=== PATIENT | male | born 1985 | race Caucasian/White ===

== ENCOUNTER 2018-03-11 21:09 | Emergency (ER) | payer OTHER, SELFPAY ==
[2018-03-11 21:12] VITALS: BP 159/83; PULSE 59; RESP 14; TEMP 36.7; O2SAT 100
--- NOTE | 2018-03-11 21:26 | DI.CT.S_ITS ---
PROCEDURE: CT KIDNEY URETER BLADDER (KUB) INDICATIONS: right flank pain TECHNIQUE: Noncontrast 5 mm thick sections acquired from the diaphragms to the symphysis. 5 mm thick coronal and sagittal reformats were then performed. For radiation dose reduction, the following was used: automated exposure control, adjustment of mA and/or kV according to patient size. COMPARISON: None. FINDINGS: Image quality: Excellent. Lung bases: Lung bases are clear. Heart size is normal. Urinary system: No kidney stones. No hydronephrosis or perinephric fat stranding. There is a small left renal cortical cysts. Both ureters appear non-dilated throughout their expected courses. Bladder wall thickness is normal; no calcified bladder stones. Other solid organs: Noncontrast evaluation of the liver demonstrates no focal hepatic lesions. Gallbladder appears within normal limits. Pancreas is normal in contours. Spleen is normal in size. No adrenal nodules. Peritoneum and bowel: Unenhanced bowel loops demonstrate normal wall thickness and caliber. The appendix appears within normal limits. No free fluid or air. Nodes and vessels: No retroperitoneal or mesenteric adenopathy by size criteria. There is mild hazy fat stranding within the small bowel mesentery with scattered subcentimeter mesenteric lymph nodes. Aorta and inferior vena cava are normal in caliber. Abdominal wall: No ventral hernias. Pelvis: No free pelvic fluid. No inguinal hernias or adenopathy. Bones: No suspicious bony lesions. No vertebral body compression fractures. IMPRESSION: 1. No evidence of nephrolithiasis or obstructive uropathy. 2. No evidence of appendicitis. 3. Mild hazy fat stranding of the mesentery with scattered subcentimeter mesenteric lymph nodes. The findings are nonspecific but suggestive of an inflammatory process such as sclerosing mesenteritis. Dictated by: Rudy Del Angel M.D. on 03/11/2018 at 21:56 Approved by: Rudy Del Angel M.D. on 03/11/2018 at 21:58
[2018-03-11] MEDS: IBUPROFEN 400 MG TABLET 800 MG PO (21:35)
[2018-03-11 22:14] LABS: Bacteria Urine None Seen
--- NOTE | 2018-03-11 22:21 | ED_ITS ---
HPI - Abdominal Pain General Chief Complaint: Abdominal Pain Stated Complaint: BACK AND ABDOMINAL PAIN Time Seen by Provider: 03/11/18 21:19 Source: patient Mode of arrival: ambulatory Limitations: no limitations History of Present Illness HPI narrative: Patient is a 32-year-old male who presents right-sided flank pain radiating down his brain. It started about an hour prior to arrival. He said he was playing basketball and when I was done the pain started it was quite intense he felt nauseated and sweaty. It radiated right down to his groin. Not down to his leg. He denies any injury. Since he is drive the pain is gone. He has not had fever hematuria or history of kidney stones. He has feeling well earlier in the day. MD complaint: abdominal pain and flank pain Onset (ago): hour(s) (1) Pain Consistency: now resolved Location: R flank Severity: severe Quality: stabbing Radiation: RLQ Migration to: no migration Relieving factors: nothing Exacerbating factors: nothing Associated symptoms: nausea Review of Systems Review of Systems GENERAL: Denies chills, fatigue, malaise, fever, sweats, travel HEENT: Denies sinus pain, ear pain, sore throat, difficulty swallowing, neck pain RESPIRATORY: Denies dyspnea, cough, wheezing, hemoptysis, sputum. CARDIOVASCULAR: Denies chest pain, palpitations, orthopnea, edema GASTROINTESTINAL: See HPI : See HPI MUSCULOSKELETAL: Denies weakness, joint pain, or bony pain SKIN: No rash, no erythema, no pruritus NEUROLOGIC: Denies weakness, dizziness, headache, numbness, change in speech, confusion PSYCHIATRIC: No concerning psychosocial issues. 12 point review of systems is negative except for those stated above and HPI [facility] Medical History Healthy adult (Acute) Social History Smoking Status: Never smoker alcohol intake: never substance use type: does not use Exam Initial Vital Signs Initial Vital Signs: Vital Signs Temperature 98.1 F 03/11/18 21:12 Pulse Rate 59 L 03/11/18 21:12 Respiratory Rate 14 03/11/18 21:12 Blood Pressure 159/83 H 03/11/18 21:12 Pulse Oximetry 100 03/11/18 21:12 GENERAL: Well-appearing young male sitting in chair no acute distress HEENT: Head atraumatic,EOMI, pupils reactive, CARDIOVASCULAR: Regular rate and rhythm without murmurs, rubs or gallops. RESPIRATORY: Breath sounds equal bilaterally, no wheezes rales or rhonchi. ABDOMEN: Soft, nontender. Normoactive bowel sounds all 4 quadrants. No guarding or rebound. : Minimal CVA tenderness EXTREMITIES: Normal range of motion, no clubbing or edema. Neurovascularly intact NEUROLOGICAL: Alert and oriented x4.Normal gait and speech. Cranial nerves II through XII grossly intact. SKIN: Warm, dry, no laceration, no petechiae, no rashes or lesions. Course Orders Ordered: ED Orders 03/11/18 21:26 CT kidney ureter bladder (KUB) Stat 03/11/18 22:13 Urine Microscopic Stat Discontinued Medications Ibuprofen (Advil) 800 mg PO NOW ONE Stop: 03/11/18 21:27 Last Admin: 03/11/18 21:35 Dose: 800 mg Vital Signs - 8 hr 03/11/18 21:12 03/11/18 22:26 Temperature 98.1 F Pulse Rate 59 L 56 L Respiratory Rate 14 16 Blood Pressure 159/83 H 120/80 Pulse Oximetry 100 100 MDM - Abdominal Pain Lab Data Attestation: I reviewed the patient's lab results. Lab Results 03/11/18 Range/Units 22:13 Urine RBC 5-10/hpf H (0-5/HPF) Urine WBC 0-1/hpf (0-5/HPF) Urine Bacteria None seen (None) Urine Mucus 1+ H (Negative) Ur Culture Indicated? Cult not indicated Micro UA Comment Not Reportable Point of care testing: Urine Dip Bedside Urine Glucose Negative Bedside Urine Bilirubin - Negative Bedside Urine Ketone +/- 5 Urine Specific [place] 1.025 Bedside Urine Occult Blood +++ Bedside Urine pH 6.0 Bedside Urine Protein +/- 15 Bedside Urine Urobilinogen - Negative Bedside Urine Nitrite - Negative Bedside Urine Leukocytes - Negative Esterase Imaging Data CT scan - abdomen: Radiologist's impression: PROCEDURE: CT KIDNEY URETER BLADDER (KUB) INDICATIONS: right flank pain TECHNIQUE: Noncontrast 5 mm thick sections acquired from the diaphragms to the symphysis. 5 mm thick coronal and sagittal reformats were then performed. For radiation dose reduction, the following was used: automated exposure control, adjustment of mA and/or kV according to patient size. COMPARISON: None. FINDINGS: Image quality: Excellent. Lung bases: Lung bases are clear. Heart size is normal. Urinary system: No kidney stones. No hydronephrosis or perinephric fat stranding. There is a small left renal cortical cysts. Both ureters appear non-dilated throughout their expected courses. Bladder wall thickness is normal; no calcified bladder stones. Other solid organs: Noncontrast evaluation of the liver demonstrates no focal hepatic lesions. Gallbladder appears within normal limits. Pancreas is normal in contours. Spleen is normal in size. No adrenal nodules. Peritoneum and bowel: Unenhanced bowel loops demonstrate normal wall thickness and caliber. The appendix appears within normal limits. No free fluid or air. Nodes and vessels: No retroperitoneal or mesenteric adenopathy by size criteria. There is mild hazy fat stranding within the small bowel mesentery with scattered subcentimeter mesenteric lymph nodes. Aorta and inferior vena cava are normal in caliber. Abdominal wall: No ventral hernias. Pelvis: No free pelvic fluid. No inguinal hernias or adenopathy. Bones: No suspicious bony lesions. No vertebral body compression fractures. IMPRESSION: 1. No evidence of nephrolithiasis or obstructive uropathy. 2. No evidence of appendicitis. 3. Mild hazy fat stranding of the mesentery with scattered subcentimeter mesenteric lymph nodes. The findings are nonspecific but suggestive of an inflammatory process such as sclerosing mesenteritis. Dictated by: Rudy Del Angel M.D. on 03/11/2018 at 21:56 MDM Narrative Medical decision making narrative: Patient and blood in his urine no stone seen on CT. His symptoms are consistent with kidney stone along with blood in his urine. No sign of infection. I suspect that he may have a kidney stone. Discharge Plan Departure Patient Disposition: Home Clinical Impression: Kidney stone on left side Discharge Date/Time: 03/11/18 22:27 Interventions: ED Discharge Assessment Last Done: 03/11/18 22:26 Instructions: DI for Kidney Stones Activity Restrictions/Additional Instructions: *You have been diagnosed with kidney stone *What to do: Based on your symptoms and urinalysis it is highly likely that you passed a kidney stone. your CT scan does not show a kidney stone and appendix was normal. Increase fluid intake *Continue to take medications as directed Motrin 800 mg every 8 hr with food if needed for pain *Follow up with your primary care provider in 2-3 days *Return to ER if you should have pain not controlled, fever, or any new, worsening or concerning symptoms Referrals: [facility] [Outside] [facility] [Outside]
[2018-03-11 22:26] VITALS: BP 120/80; PULSE 56; RESP 16; O2SAT 100
[2018-03-11 22:27] LABS: Culture Indicated Urine Cult Not Indicated; Mucus Urine 1+ (Negative); RBC Urine 5-10/HPF (0-5/HPF); WBC Urine 0-1/HPF (0-5/HPF)
== END 2018-03-11 22:27 | disposition home or self-care (01) ==
PROVIDERS: Emergency Provider Emergency Medicine
DX: N20.0 Calculus of kidney (principal)
CPT/HCPCS: 74176; 81003; 81015; 99282; 99284